=== PATIENT | female | born 1945 | race Asian ===

== ENCOUNTER 2017-04-01 11:28 | Outpatient (CLI) | payer MEDICARE ==
--- NOTE | 2017-04-01 15:32 | Mammography Report ---
BILATERAL DIGITAL SCREENING MAMMOGRAM with CAD: 04/01/17 11:28:00 CLINICAL: Routine screening. COMPARISON:02/14/15 and 11/21/09 FINDINGS: The breasts are almost entirely fatty. No mass, architectural distortion or suspicious calcifications. IMPRESSION: No mammographic evidence of malignancy. BI-RADS CATEGORY: 1 - - Negative RECOMMENDATION: Routine mammographic screening in one year. COMMENT: Patient follow-up letters are generated by our [employer] application.
== END 2017-04-01 11:29 | disposition home or self-care (01) ==
LOC: SPVWC 11:28
PROVIDERS: ATTEND Nurse Practitioner
DX: Z12.31 Encounter for screening mammogram for malignant neoplasm of breast (principal)
CPT/HCPCS: 77067; G0202